=== PATIENT | female | born 1950 | race Caucasian/White ===

== ENCOUNTER 2024-03-24 12:48 | Day surgery (SDC) | payer MEDICARE, BC, OTHER, SELFPAY ==
[2024-03-24 13:19] VITALS: BP 169/87; PULSE 72; RESP 12; TEMP 36.7; O2SAT 100
--- NOTE | 2024-03-24 13:55 | P.HP_ITS ---
History of Present Illness History of Present Illness Chief complaint: [facility] – [place], [place] Narrative: Follow-up 10 year screening colonoscopy [facility] Medical History (Updated 03/24/24 @ 13:40 by Josie Moon RN) SVT (supraventricular tachycardia) Social History Smoking Status: Never smoker alcohol intake: current Meds Home Medications and Allergies Home Medications Medication Instructions Recorded Confirmed Type hydrochlorothiazide 12.5 mg capsule 12.5 mg PO DAILY PRN leg swelling 03/24/24 03/24/24 History while flying propranolol 10 mg tablet 10 mg PO DAILY PRN SVT 03/24/24 03/24/24 History Allergies Allergy/AdvReac Type Severity Reaction Status Date / Time No Known Drug Allergies Allergy Verified 03/24/24 13:15 Exam Vital Signs (past 8 hours): - 03/24/24 13:19 Temperature 98.0 F Pulse Rate 72 Respiratory Rate 12 Blood Pressure 169/87 H Pulse Oximetry 100 Oxygen Delivery Method Room Air Oxygen Delivery Method Room Air Narrative Exam Narrative: Oropharynx free of lesions Chest clear to auscultation percussion Cardiac exam reveals no S3 or murmur Assessment & Plan Assessment & Plan narrative: Need for 10 year follow-up colonoscopy for screening. Risks, benefits, alternatives have been explained. Time-Based Coding :: [TOTAL MINUTES] spent with patient and on the chart (including review of chart, obtaining history, exam, reviewing outside data, placing orders, documenting exam and treatment plan, and counseling patient) on [DATE].
--- NOTE | 2024-03-24 13:57 | PM.OP.COLON ---
Operative Date/Time/Diagnoses Date of procedure: 03/24/24 Pre-op diagnosis: See indication and findings Procedure & Clinicians Study performed: Colonoscopy Indications: Screening at a 10 year interval Surgeon: Papito Gillespie Procedure Notes Procedure in detail: After informed consent was obtained patient placed in left lateral decubitus position. The video colonoscope was introduced the rectum slowly advanced cecum. On slow withdrawal mucosa was carefully examined. The scope was removed. The patient tolerated procedure well. Blood loss none Complications none Sedation mac Findings 1. Normal colonoscopy to cecum We discussed how this is probably her last colonoscopy.
[2024-03-24 14:13] VITALS: BP 123/88; PULSE 91; RESP 16; TEMP 36.3; O2SAT 93
[2024-03-24 14:19] VITALS: BP 124/78; PULSE 74; RESP 15; O2SAT 94
[2024-03-24 14:25] VITALS: BP 126/72; PULSE 95; RESP 99; TEMP 36.8
== END 2024-03-24 14:49 | disposition home or self-care (01) ==
PROVIDERS: Family Provider Family Medicine; PCP Physician Assistant; Referring Provider Internal Medicine Gastroenterology; Visit Provider Internal Medicine Gastroenterology
PROC: 0DJD8ZZ Inspection of Lower Intestinal Tract, Via Natural or Artificial Opening Endoscopic (ICD-10-PCS; CPT 45378; principal; 2024-03-24 14:00)
DX: Z12.11 Encounter for screening for malignant neoplasm of colon (principal)
CPT/HCPCS: G0121; J2704